=== PATIENT | female | born 1970 | race Caucasian/White ===

== ENCOUNTER 2016-12-11 11:47 | Inpatient (IN) | payer OTHER ==
--- NOTE | 2016-12-11 06:47 | PDHPUP ---
History & Physical Update H&P update statement: This history and physical update is based on an assessment of the patient which was completed after admission or registration (within 24 hours), but prior to the surgery/procedure. H&P update: H&P reviewed & patient examined, no change in patient's condition since H&P completed
[~2016-12-11 11:47] MED LIST: ceFAZolin 2 GM/DEXTROSE 100 ML IV ONE; morphINE SR 15 MG TAB PO ONE
[2016-12-11] MEDS ORDERED: LIDOCAINE 1% 2 ML INJ ONE (11:59)
[2016-12-11] MEDS ORDERED: LR 1,000 ML IV ONE (12:06)
[2016-12-11] MEDS ORDERED: GENTAMICIN SULFATE 80 MG/2 ML VIAL ONE (12:12)
[2016-12-11] MEDS ORDERED: THROMBIN (BOVINE) 5,000 UNIT VIAL TP ONE (12:12)
[2016-12-11] MEDS ORDERED: BACITRACIN 50,000 UNITS/10 ML SYR IRR ONE ×2 (12:12→13:46)
[2016-12-11] MEDS ORDERED: BUPIVACAINE/EPI 0.25% 30 ML SDV ONE ×2 (12:12→14:57)
[2016-12-11] MEDS ORDERED: GADOBUTROL 10 ML VIAL IVP ONE (12:39)
[2016-12-11] MEDS ORDERED: ceFAZolin 2 GM/DEXTROSE 100 ML IV ONE (13:00)
[2016-12-11] MEDS ORDERED: morphINE SR 15 MG TAB PO ONE (13:00)
--- NOTE | 2016-12-11 13:22 | PDANEPAE ---
ANE History of Present Illness 46 yo F with trigeminal neuralgia, here for crani, microvascular decompression ANE Past Medical History - Cardiovascular History Hx Hypertension: No Hx Arrhythmias: No Hx Chest Pain: No Hx Coronary Artery / Peripheral Vascular Disease: No Hx CHF / Valvular Disease: No Hx Palpitations: No Cardiovascular History Comment: THICKENING OF MITRAL VALVE- PCP MANAGES-dx 20+ yrs ago - Pulmonary History Hx COPD: No Hx Asthma/Reactive Airway Disease: No Hx Recent Upper Respiratory Infection: No Hx Oxygen in Use at Home: No Hx Sleep Apnea: No Sleep Apnea Screening Result - Last Documented: Negative - Neurologic History Hx Cerebrovascular Accident: No Hx Seizures: No Hx Dementia: No Neurologic History Comment: MIGRAINES - Endocrine History Hx Diabetes: No Hypothyroid: Yes Endocrine History Comment: HYPOTHYROIDISM -no Rx - Renal History Hx Renal Disorders: No - Liver History Hx Hepatic Disorders: No - Neurological & Psychiatric Hx Hx Neurological and Psychiatric Disorders: Yes Neurological / Psychiatric History Comment: DEPRESSION. ANXIETY. C5/C6 bulging disc,osteophyte - Cancer History Hx Cancer: No - Congenital Disorder History Hx Congenital Disorders: No - GI History GERD: mild Hx Gastrointestinal Disorders: Yes Gastrointestinal History Comment: REFLUX ON PRILOSEC. IBS. HX OF GASTRIC ULCER , ischemic colitis. - Other Health History Other Health History: Trigeminal neuralgia - Chronic Pain History Chronic Pain: Yes (R face/toward R ear) - Surgical History Prior Surgeries: R ft bunionectomy 2014. LT FOOT BUNION 05/2014. LAP MARNIE. LAPROSCOPY. 3 C-SECTIONS. HYSTERECTOMY. LEFT BREAST LUMPECTOMY ANE Review of Systems - Exercise capacity Exercise capacity: >=4 METS METS (RN): 4 METS ANE Patient History - Allergies Allergies/Adverse Reactions: Sulfa (Sulfonamide Antibiotics) Allergy (Verified 12/06/16 17:18) Hives - Home Medications Home medications: home medication list seen and reviewed Home Medications: Baclofen [Baclofen 10 mg (*)] 30 mg PO HS 11/22/16 [Last Taken 12/10/16] Butalb/Acetaminophen/Caffeine [Kngafc-Xdqzjmzi-Rgrm 50-300-40] 2 cap PO Q6H PRN 11/22/16 [Last Taken Unknown] DULoxetine [Cymbalta 60 MG (*)] 120 mg PO DAILY 11/22/16 [Last Taken 12/11/16] Doxepin HCl [Silenor] 6 mg PO HS 11/22/16 [Last Taken 12/10/16] Eszopiclone [Lunesta] 3 mg PO HS 11/22/16 [Last Taken 12/10/16] Gabapentin [Gabapentin] 600 mg PO TID 11/22/16 [Last Taken 12/11/16] Prochlorperazine Maleate [Compazine 10mg (*)] 10 mg PO Q6H PRN 11/22/16 [Last Taken 12/10/16] Spironolactone [Aldactone 50 MG (RX)] 50 mg PO BID 11/22/16 [Last Taken 12/10/16 ] buPROPion SR [Wellbutrin 150mg SR (*)] 150 mg PO BID 11/22/16 [Last Taken ] carBAMazepine [Tegretol] 200 mg PO BID 11/22/16 [Last Taken 12/10/16] Omeprazole [Prilosec 20 mg] 20 mg PO DAILY 12/06/16 [Last Taken 12/10/16] - NPO status NPO Status: no food or drink >8 hours NPO Since - Liquids (Date): 12/10/16 NPO Since - Liquids (Time): 21:00 NPO Since - Solids (Date): 12/10/16 NPO Since - Solids (Time): 21:00 - Anes Hx Anes Hx: post operative nausea - Smoking Hx Smoking Status: Never smoked - Family Anes Hx Family Anes Hx: none Family Hx Anesthesia Complications: NONE ANE Labs/Vital Signs - Vital Signs Blood Pressure: 114/75 Heart Rate: 99 Respiratory Rate: 14 O2 Sat (%): 98 Height: 157.48 cm Weight: 54.431 kg ANE Physical Exam - Airway Neck exam: FROM Mallampati Score: Class 2 Mouth exam: normal dental/mouth exam - Pulmonary Pulmonary: no respiratory distress, clear to auscultation - Cardiovascular Cardiovascular: regular rate and rhythym, no murmur, rub, or gallop - ASA Status ASA Status: II ANE Anesthesia Plan Anesthesia Plan: general endotracheal anesthesia Lines/Monitors: arterial line
[2016-12-11] MEDS ORDERED: MIDAZOLAM 2 MG/2 ML VIAL IVP ONE (13:23)
[2016-12-11] MEDS ORDERED: fentaNYL 100 MCG/2 ML INJ ONE ×4 (13:27→18:31)
[2016-12-11] MEDS ORDERED: REMIFENTANIL HCL 1 MG VIAL ONE ×2 (13:27→16:25)
[2016-12-11] MEDS ORDERED: PROPOFOL 200 MG/20 ML VIAL ONE (13:27)
[2016-12-11] MEDS ORDERED: PROPOFOL/EMULSION 500 MG/50 ML BOTTLE IV ONE ×2 (13:28→16:25)
[2016-12-11] MEDS ORDERED: CAFFEINE PO PRN (13:29)
[2016-12-11] MEDS ORDERED: PROCHLORPERAZINE MALEATE 10 MG TAB PO PRN (13:29)
[2016-12-11] MEDS ORDERED: ACETAMINOPHEN PO PRN (13:29)
[2016-12-11] MEDS ORDERED: [UNRECOGNIZED DRUG - OTHER] PO PRN (13:29)
[2016-12-11] MEDS ORDERED: BUTALBITAL PO PRN (13:29)
[2016-12-11] MEDS ORDERED: niCARdipine/NACL 200 ML IV PRN (13:30)
[2016-12-11] MEDS ORDERED: LACTULOSE 20 GM/30 ML UDCUP PO PRN (13:30)
[2016-12-11] MEDS ORDERED: POLYETHYLENE GLYCOL 3350 17 GM PKT PO PRN (13:30)
[2016-12-11] MEDS ORDERED: ONDANSETRON DISINTEGRATING 4 MG TAB PO PRN (13:30)
[2016-12-11] MEDS ORDERED: MAG HYDROX/AL HYDROX/SIMETH 30 ML UDCUP PO PRN (13:30)
[2016-12-11] MEDS ORDERED: BISACODYL 10 MG SUPP PR PRN (13:30)
[2016-12-11] MEDS ORDERED: MAGNESIUM HYDROXIDE 30 ML UDCUP PO PRN (13:30)
[2016-12-11] MEDS ORDERED: ACETAMINOPHEN 325 MG TAB PO PRN ×2 (13:30)
[2016-12-11] MEDS ORDERED: DEXAMETHASONE 4 MG/ML VIAL ONE ×3 (15:21→16:59)
[2016-12-11] MEDS ORDERED: ONDANSETRON 4 MG/2 ML VIAL ONE (15:21)
[2016-12-11] MEDS ORDERED: HYDROmorphONE/DILAUDID 1 MG/ML SYR IVP PRN (17:04)
[2016-12-11] MEDS ORDERED: PROMETHAZINE HCL 25 MG/ML INJ IVP PRN (17:04)
[2016-12-11] MEDS ORDERED: fentaNYL 100 MCG/2 ML INJ IVP PRN (17:04)
[2016-12-11] MEDS ORDERED: NALOXONE HCL 0.4 MG/ML INJ IVP PRN ×2 (17:04→18:00)
[2016-12-11] MEDS ORDERED: ONDANSETRON 4 MG/2 ML VIAL IVP PRN (17:04)
[2016-12-11] MEDS ORDERED: HYDROmorphONE/DILAUDID 2 MG/ML INJ ONE (17:30)
--- NOTE | 2016-12-11 17:48 | SOAPPROG ---
SOAP Progress Note Assessment/Plan: Post Op Visit: S: Awake and alert. NAD. Pt with mild incisional XIE O: AFVSS/PERRLA/EOMI no droop CN 2-12 grossly intact +lt touch 5/5 BUE/BLE = CDI/dressing in place A/P: 46 yo female that is s/p right sided MVD -orders in -call with any questions or concerns -pt seen by Dr Mata as well -HOB greater than 30degrees -no straining -pt will likely have higher pain med and nausea med needs 12/11/16 17:59 Objective: Vital Signs Temp Pulse Resp BP Pulse Ox 36.8 C 99 14 114/75 98 12/11/16 12:21 12/11/16 13:23 12/11/16 13:23 12/11/16 13:23 12/11/16 13:23 ICD10 Worksheet Patient Problems: Problems Problem Status Onset Trigeminal neuralgia of right side of face Acute microvascular decompression Acute - ICD10 Problem Qualifiers (1) Trigeminal neuralgia of right side of face
[2016-12-11] MEDS: fentaNYL 100 MCG/2 ML INJ IVP PRN ×4 (17:52→18:32)
[2016-12-11] MEDS ORDERED: PROMETHAZINE HCL 25 MG/ML INJ ONE (17:59)
[2016-12-11] MEDS ORDERED: HYDROmorphONE/DILAUDID 1 MG/ML SYR ONE ×2 (17:59→18:25)
[2016-12-11] MEDS ORDERED: METOCLOPRAMIDE 10 MG/2 ML VIAL IVP PRN (18:00)
[2016-12-11] MEDS ORDERED: SCOPOLAMINE HYDROBROMIDE 1.5 MG PATCH TD ONE ×2 (18:00→21:15)
[2016-12-11] MEDS ORDERED: HYDROmorphONE/DILAUDID 6 MG/30 ML PCA IV PRN (18:00)
[2016-12-11] MEDS: HYDROmorphONE/DILAUDID 1 MG/ML SYR IVP PRN ×5 (18:02→18:51)
[2016-12-11] MEDS: NS W/ 20 KCl/L 1,000 ML IV SCH (19:35)
[2016-12-11] MEDS: GABAPENTIN 300 MG CAP PO SCH ×2 (20:44→21:20)
[2016-12-11] MEDS ORDERED: NON-FORMULARY NEW DRUG (Eszopiclone [Lunesta] 3 MG) PO SCH (21:00)
[2016-12-11] MEDS ORDERED: DOXEPIN HCL 6 MG PO SCH (21:00)
[2016-12-11] MEDS: FAMOTIDINE 20 MG/NACL 50 ML IV SCH (21:07)
[2016-12-11] MEDS: DEXAMETHASONE 4 MG/ML VIAL IVP SCH (21:08)
[2016-12-11] MEDS: carBAMazepine 200 MG TAB PO SCH (21:19)
[2016-12-11] MEDS: BACLOFEN 10 MG TAB PO SCH (21:19)
[2016-12-11] MEDS: buPROPion SR 150 MG TAB PO SCH (21:19)
[2016-12-11] MEDS: SENNOSIDES/DOCUSATE SODIUM TAB PO SCH (21:20)
[2016-12-11] MEDS: SPIRONOLACTONE 50 MG TAB PO SCH (21:20)
[2016-12-11] MEDS: HYDROCODONE/APAP 10/325 TAB PO PRN (21:55)
[2016-12-11] MEDS: ONDANSETRON 4 MG/2 ML VIAL IVP PRN (22:17)
[2016-12-11] MEDS: ZOLPIDEM TARTRATE 5 MG TAB PO SCH (22:18)
[2016-12-11] MEDS: Doxepin Hcl [Silenor] 6 MG PO SCH (22:56)
[2016-12-12] MEDS: DEXAMETHASONE 4 MG/ML VIAL IVP SCH ×3 (02:18→11:42)
--- NOTE | 2016-12-12 04:17 | GOP ---
[f rep st] OPERATIVE REPORT DATE OF OPERATION: 12/11/2016 SURGEON: Neeraj Mata MD CAPACITOR TESTER: Nasim Maciel PA-C. PREOPERATIVE DIAGNOSIS: Right trigeminal neuralgia. POSTOPERATIVE DIAGNOSIS: Right trigeminal neuralgia. PROCEDURE PERFORMED: Right posterior fossa retromastoid craniotomy and microvascular decompression of the 5th cranial nerve, cranial stereotaxy, microscope. FINDINGS: ESTIMATED BLOOD LOSS: 50 cc. INDICATIONS: The patient is a 46-year-old with terrible refractory trigeminal neuralgia that was or iginally responsive to conservative treatment. She desired to have surgery for this. On her preope rative planning, images of the brain did not demonstrate a clear evidence of the cisternal segment v essel loop and she and I discussed this. She was really at wits end and felt that was probabl y better than living with the pain that she was in and she wanted to try surgery. She knew there wa s risk of hearing loss, facial asymmetry, brainstem stroke, cerebellar hemorrhage, posterior fossa h emorrhage including the possibility of . She knew that surgery may not provide her any relief and she knew that this was risk of CSF leak. She wanted to proceed despite these risks. DESCRIPTION OF PROCEDURE: Patient was taken to the operating room, placed in supine position. Gene ral anesthesia was begun. A large right shoulder roll was placed. Her head was turned to the left. She is connected to a Knight head frame and registered to the [facility]. Good registratio n data was obtained. We clipped the hair behind her right ear and planned a curvilinear incision. Crossing the junction of the sigmoid and transverse sinus had been planned [facility] She was sterilely prepped and draped in usual fashion. We made a sigmoid shaped incision, an d the subcutaneous tissue was dissected with Bovie cautery down to the periosteum of the skull and w e the soft tissue and galea away from the skull and placed a cerebellar retractor. We map ped out the sigmoid and transverse sinus and performed a craniotomy ostomy over this region at the j unction of the two. It was about a half-dollar shaped craniotomy. There was a large bridging vein and in this area of vein within the bone that we discovered running anterior laterally into the lowe r segments of the sigmoid sinus and we actually skeletonized this without any significant bleeding b ut it caused us to have a larger gap in our craniotomy than we would normally have planned. We were able to skeletonize the vessel and eventually coagulate it and divide it and then removed the bone without violation of the underlying dura. We used Kerrison to enlarge the opening somewhat and ensu re that we had the sigmoid and transverse sinuses. We then opened the dura in a cruciate fashion. We then opened and retracted the cerebellum medially and went down and punctured the cisterna magna with a 6 Rhoton and CSF emanated from this area and this allowed the cerebellum to collapse. We the n went rostrally above the cerebellum where there were some adhesions to the tentorium. We coagulat ed these adhesions and divided them allowing the cerebellum to fall out down and away from the tento rium. We did not actually coagulate any of the bridging cerebellar veins to the tentorium. These w ere somewhat deeper and they were not threatened by our exposure. We then introduced operating micr oscope and under the scope, we went in and without a retractor simply allowed the cerebellum to fall away from the tentorium and the petrous bone. The petrosal vein was located and coagulated and tra nsected. Deep to this was the 5th cranial nerve. The 4th cranial nerve was also appreciated rostra lly. The superior cerebellar artery and ICA were also identified. The superior cerebellar artery d id not appear to interfere with the nerve root entry zone of the 5th nerve. There were 2 structures at the nerve root entry zone of the 5th nerve. One was a vessel loop of ICA coming up over the 7th , 8th nerve complex, curving around and touching the fibers of the 5th nerve right where they entere d the brainstem itself. We mobilized this vessel with relative ease. There was also another relati vely large vein coming across the same region and we were able to mobilize this vein by dividing the arachnoid around it, but I did not want to sacrifice this vein as one would typically do. We did m obilize the vein and we then performed an internal neurolysis of the 5th nerve, simply dividing its fibers and really peering on the backside of it and looking for any evidence of additional vessels e arian on the backside of the 5th nerve and none was found. We therefore further mobilized ICA and the vessel loop coming up over the 7th and 8th nerve complex and then laid an Ivalon sponge underneath this vessel loop where it was sitting on the nerve root entry zone of the 5th nerve itself. We then irrigated it vigorously and attempted to dislodge the Ivalon sponge and it appeared to be very secu re. We then turned our attention to closing and we closed the dura with a running 5-0 Prolene sutur e and got a nice watertight closure. We plated the bone on the back table with [employer] craniofacial plating system and fixed it in place. We had waxed the bony edges going in and waxed them again go ing out as there were some mastoid air cells that were exposed. Generous bone wax had been applied to these. We had irrigated throughout the surgery with antibiotic saline solution. We closed the i ncision in multiple layers using Vicryl sutures and a running Prolene was placed in the skin itself. There were no complications. COMPLICATIONS: None. /[id number]/MODL
[2016-12-12] MEDS: ONDANSETRON 4 MG/2 ML VIAL IVP PRN (04:27)
[2016-12-12] MEDS: FAMOTIDINE 20 MG/NACL 50 ML IV SCH (08:38)
[2016-12-12] MEDS: HYDROCODONE/APAP 10/325 TAB PO PRN ×2 (08:52→14:53)
[2016-12-12] MEDS: GABAPENTIN 300 MG CAP PO SCH ×3 (08:55→20:42)
[2016-12-12] MEDS: DULoxetine 60 MG CAP PO SCH (08:55)
[2016-12-12] MEDS: buPROPion SR 150 MG TAB PO SCH ×2 (08:55→20:42)
[2016-12-12] MEDS: PANTOPRAZOLE SODIUM 40 MG TAB PO SCH (08:55)
[2016-12-12] MEDS: SENNOSIDES/DOCUSATE SODIUM TAB PO SCH ×2 (08:56→20:41)
[2016-12-12] MEDS: carBAMazepine 200 MG TAB PO SCH ×2 (08:57→20:41)
[2016-12-12] MEDS: SPIRONOLACTONE 50 MG TAB PO SCH ×2 (08:57→21:07)
--- NOTE | 2016-12-12 09:23 | NEUSURGPN ---
Assessment/Plan: Post Op Visit: S: Awake and alert. States she is having headaches, but no nausea. Reports of some word finding difficulties overnight but per RN also had a lot of pain meds and sleep deprivation that may have been contributing. Better this morning. Reports of some intermittent double vision. Has no facila pain as of now but has not performed triggers that normally set off this pain. 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 Mata Catheter Insertion Date: 12/11/16 - Physician Discussed Patient with : Adolfo Neurosurgery Physical Exam - Vitals, I&O, Labs I and O 12/11/16 12/12/16 12/13/16 05:59 05:59 05:59 Intake Total 3583 Output Total 2050 Balance 1533 Weight 54.431 kg Intake: Oral (ml) 630 IV Intake (ml) 2853 IV Infused (ml) 100 ceFAZolin 2 GM/DEXTROSE 100 100 ml @ 200 mls/hr IV ONCALL ONE Rx#:[id number] Output: Urine (ml) 2000 Catheter 2000 Estimated Blood Loss (ml) 50 Vital Signs Temp Pulse Resp BP Pulse Ox 36.6 C 90 12 97/61 L 99 12/12/16 04:00 12/12/16 06:00 12/12/16 06:00 12/12/16 06:00 12/12/16 06:00 ICD10 Worksheet Patient Problems: Problems Problem Status Onset Trigeminal neuralgia of right side of face Acute microvascular decompression Acute
[2016-12-12] MEDS: ACET/CAFFEINE/BUTA FIORICET 1 EACH TAB PO PRN ×2 (10:26→15:21)
[2016-12-12] MEDS: DIAZEPAM 5 MG TAB PO PRN ×2 (12:54→18:03)
[2016-12-12] MEDS: OXYCODONE/APAP 5/325 TAB PO PRN (16:05)
[2016-12-12] MEDS ORDERED: PATCH REMOVAL 1 EA PATCH TD ONE (18:01)
[2016-12-12] MEDS: BACLOFEN 10 MG TAB PO SCH (20:40)
[2016-12-12] MEDS: ZOLPIDEM TARTRATE 5 MG TAB PO SCH (20:42)
[2016-12-12] MEDS: Doxepin Hcl [Silenor] 6 MG PO SCH (20:46)
--- NOTE | 2016-12-13 09:21 | NEUSURGPN ---
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 Mata Subjective: Speech improved. a little dizzy with standing, some double vision. Denies any discharge from her incision. Objective: NAD A&Ox3 MAEx4 5/5 and equal in BUE and BLE. CN II-XII grossly intact. Incision c/d/i. Catheter Insertion Date: 12/11/16 - Physician Discussed Patient with : Adolfo Neurosurgery Physical Exam - Vitals, I&O, Labs I and O 12/12/16 12/13/16 12/14/16 05:59 05:59 05:59 Intake Total 3583 1500 Output Total 2050 750 Balance 1533 750 Weight 54.431 kg Intake: Oral (ml) 630 1200 IV Intake (ml) 2853 IV Infused (ml) 100 300 NS W/ 20 KCl/L 1,000 ml @ 300 100 mls/hr IV CONT SCOTT Rx#:[id number] ceFAZolin 2 GM/DEXTROSE 100 100 ml @ 200 mls/hr IV ONCALL ONE Rx#:[id number] Output: Urine (ml) 2000 750 Catheter 2000 750 Estimated Blood Loss (ml) 50 Other: Number of Voids Catheter 3 Toilet 3 Vital Signs Temp Pulse Resp BP Pulse Ox 36.8 C 104 H 15 101/69 94 12/13/16 08:00 12/13/16 08:00 12/13/16 08:00 12/13/16 08:00 12/13/16 08:00 ICD10 Worksheet Patient Problems: Problems Problem Status Onset Trigeminal neuralgia of right side of face Acute microvascular decompression Acute
[2016-12-13] MEDS: OXYCODONE/APAP 5/325 TAB PO PRN ×2 (09:22→15:26)
[2016-12-13] MEDS: DULoxetine 60 MG CAP PO SCH (09:24)
[2016-12-13] MEDS: buPROPion SR 150 MG TAB PO SCH ×2 (09:24→20:31)
[2016-12-13] MEDS: carBAMazepine 200 MG TAB PO SCH ×2 (09:24→20:32)
[2016-12-13] MEDS: SENNOSIDES/DOCUSATE SODIUM TAB PO SCH ×2 (09:24→20:32)
[2016-12-13] MEDS: DIAZEPAM 5 MG TAB PO PRN (09:24)
[2016-12-13] MEDS: GABAPENTIN 300 MG CAP PO SCH ×3 (09:24→20:32)
[2016-12-13] MEDS: PANTOPRAZOLE SODIUM 40 MG TAB PO SCH (09:25)
[2016-12-13] MEDS: SPIRONOLACTONE 50 MG TAB PO SCH ×3 (10:43→20:32)
[2016-12-13] MEDS: CEPACOL LOZENGE PO PRN ×2 (12:47→15:21)
[2016-12-13] MEDS: NS W/ 20 KCl/L 1,000 ML IV SCH (17:34)
[2016-12-13] MEDS ORDERED: NS BOLUS 500 ML (Wide open) IV ONE (18:30)
[2016-12-13] MEDS: KETOROLAC 15 MG/1 ML SDV IVP PRN (18:32)
[2016-12-13] MEDS: Doxepin Hcl [Silenor] 6 MG PO SCH (20:32)
[2016-12-13] MEDS: ZOLPIDEM TARTRATE 5 MG TAB PO SCH (20:32)
[2016-12-13] MEDS: BACLOFEN 10 MG TAB PO SCH (20:32)
[2016-12-14] MEDS: OXYCODONE/APAP 5/325 TAB PO PRN ×2 (05:29→12:43)
[2016-12-14] MEDS: NS W/ 20 KCl/L 1,000 ML IV SCH (05:30)
[2016-12-14 08:25] VITALS: BP 96/71; PULSE 94; RESP 12; TEMP 97.6; O2SAT 96
[2016-12-14] MEDS: SENNOSIDES/DOCUSATE SODIUM TAB PO SCH (09:30)
[2016-12-14] MEDS: buPROPion SR 150 MG TAB PO SCH (09:31)
[2016-12-14] MEDS: GABAPENTIN 300 MG CAP PO SCH (09:31)
[2016-12-14] MEDS: carBAMazepine 200 MG TAB PO SCH (09:31)
[2016-12-14] MEDS: PANTOPRAZOLE SODIUM 40 MG TAB PO SCH (09:31)
[2016-12-14] MEDS: DULoxetine 60 MG CAP PO SCH (09:31)
[2016-12-14] MEDS: SPIRONOLACTONE 50 MG TAB PO SCH (09:32)
[2016-12-14] MEDS: KETOROLAC 15 MG/1 ML SDV IVP PRN (10:28)
--- NOTE | 2016-12-14 11:20 | NEUSURGPN ---
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 Mata Subjective: Patient doing better with sore throat and swallowing this morning. Eager to go home later today. Objective: NAD, VSS, speech fluent A&Ox3 MAEx4 5/5 and equal in BUE and BLE. CN II-XII grossly intact. Incision c/d/i. Catheter Insertion Date: 12/11/16 - Physician Discussed Patient with : Adolfo Neurosurgery Physical Exam - Vitals, I&O, Labs I and O 12/13/16 12/14/16 12/15/16 05:59 05:59 05:59 Intake Total 1500 2100 Output Total 750 Balance 750 2100 Intake: Oral (ml) 1200 500 IV Infused (ml) 300 1600 NS W/ 20 KCl/L 1,000 ml @ 300 1100 100 mls/hr IV CONT SCOTT Rx#:[id number] Ns 500 ml @ Wide Open IV 500 ONCE ONE Rx#:[id number] Output: Urine (ml) 750 Catheter 750 Other: Intake Quantity Yes Sufficient Number of Voids Catheter 3 Toilet 3 1 Vital Signs Temp Pulse Resp BP Pulse Ox 36.4 C 94 12 96/71 L 96 12/14/16 08:00 12/14/16 08:00 12/14/16 08:00 12/14/16 08:00 12/14/16 08:00 ICD10 Worksheet Patient Problems: Problems Problem Status Onset Trigeminal neuralgia of right side of face Acute microvascular decompression Acute
== END 2016-12-14 13:15 | disposition home or self-care (01) | DRG 27 ==
LOC: F3N 11:47 → F2N 19:01 → F3N 12-12 20:10
PROVIDERS: ADMIT Neurological Surgery; ATTEND Neurological Surgery
PROC: 8E09XBZ Computer Assisted Procedure of Head and Neck Region (ICD-10-PCS; principal; 2016-12-11 14:00)
PROC: 00NK0ZZ Release Trigeminal Nerve, Open Approach (ICD-10-PCS; principal; 2016-12-11 14:00)
DX: G50.0 Trigeminal neuralgia (principal)
CPT/HCPCS: 92526-GN; 92610-GN; 97116-GP; 97161-GP; 97165-GO; 97530-GP; 97535-GO; A9585; C1713; J0690; J1100; J1170; J1200; J1885; J2250; J2405; J2550; J2704; J3010

== ENCOUNTER → 2017-08-27 | Outpatient (CLI) | payer OTHER | LOC: FIMAGING 11:18 | PROVIDERS: ATTEND Internal Medicine Geriatric Medicine | DX: Z12.31 Encounter for screening mammogram for malignant neoplasm of breast (principal); D72.829 Elevated white blood cell count, unspecified; E03.9 Hypothyroidism, unspecified; F50.00 Anorexia nervosa, unspecified; G50.0 Trigeminal neuralgia ==

== ENCOUNTER 2017-11-30 07:59 | Observation (INO) | payer OTHER ==
[2017-11-30] MEDS ORDERED: NS 1,000 ML IV ONE ×2 (08:21→08:39)
[2017-11-30] MEDS ORDERED: HYDROmorphONE/DILAUDID 2 MG/ML INJ IVP ONE ×2 (08:39→10:21)
[2017-11-30] MEDS ORDERED: ONDANSETRON 4 MG/2 ML VIAL IVP ONE (08:39)
--- NOTE | 2017-11-30 08:43 | EDPHY ---
H & P Time Seen by Provider: 11/30/17 08:15 HPI/ROS: CHIEF COMPLAINT: Abdominal pain, diarrhea HISTORY OF PRESENT ILLNESS: The patient is a 47-year-old female with a history of ischemic colitis in IBS who presents emergency department with abdominal cramping and diarrhea. The patient's symptoms started at approximately 1:00 a.m.. She developed lower abdominal cramping. She had multiple episodes of diarrhea. At 6:30 a.m. This morning she had frankly bloody diarrhea. Her cramping has worsened. She denies any nausea or vomiting. No fevers or chills. No dysuria or frequency. Patient has previously had a cholecystectomy and hysterectomy. Patient states this feels unlike her IBS or endometriosis. REVIEW OF SYSTEMS: My complete review of systems is negative except as mentioned in the HPI. Past Medical/Surgical History: Includes migraine, hypothyroidism, endometriosis, GERD, depression, trigeminal neuralgia Past surgical history: Includes cholecystectomy, hysterectomy, trigeminal neuralgia craniotomy Smoking Status: Never smoked Physical Exam: 36.4, 100/68, 102, 16, 100% on room air GENERAL: Mild acute distress, alert. HEENT: Eyes normal to inspection, normal pharynx, no signs of dehydration. NECK: No thyromegaly, no lymphadenopathy, supple. RESPIRATORY: Clear to auscultation bilaterally, no rales, rhonchi or wheezing. CVS: Regular rate and rhythm, no rubs, murmurs, or gallops. ABDOMEN: Soft, mild lower abdominal tenderness to palpation with no rebound or guarding, nondistended, no organomegaly. BACK: Normal to inspection, no CVA tenderness. SKIN: Normal color, no rash, warm, dry. No pallor. EXTREMITIES: No pedal edema, no calf tenderness, no Homans sign or cords, no joint swelling. NEURO/PSYCH: Alert and oriented, normal mood and affect, normal motor sensory exam. Constitutional: Initial Vital Signs Temperature (C) 36.4 C 11/30/17 08:01 Heart Rate 102 H 11/30/17 08:01 Respiratory Rate 16 11/30/17 08:01 Blood Pressure 100/68 11/30/17 08:01 O2 Sat (%) 100 11/30/17 08:01 O2 Delivery Mode Nasal Cannula Allergies/Adverse Reactions: Sulfa (Sulfonamide Antibiotics) Allergy (Verified 12/06/16 17:18) Hives Home Medications: Medication Instructions Recorded Baclofen [Baclofen 10 mg (*)] 30 mg PO HS 11/22/16 Butalb/Acetaminophen/Caffeine 2 cap PO Q6H PRN 11/22/16 [Sbdrsv-Rypmrgak-Jjof 50-300-40] DULoxetine [Cymbalta 60 MG (*)] 120 mg PO DAILY 11/22/16 Doxepin HCl [Silenor] 6 mg PO HS 11/22/16 Eszopiclone [Lunesta] 3 mg PO HS 11/22/16 Gabapentin 600 mg PO TID 11/22/16 Prochlorperazine Maleate 10 mg PO Q6H PRN 11/22/16 [Compazine 10mg (*)] Spironolactone [Aldactone] 50 mg PO BID 11/22/16 buPROPion SR [Wellbutrin 150mg SR 150 mg PO BID 11/22/16 (*)] carBAMazepine [Tegretol] 200 mg PO BID 11/22/16 Omeprazole [Prilosec 20 mg] 20 mg PO DAILY 12/06/16 Ibuprofen [Ibuprofen Ib] 600 - 800 mg PO Q6 #0 tablet 12/14/16 Ondansetron Odt [Zofran Odt 4 mg 4 - 8 mg PO Q6HRS PRN #30 tab 12/14/16 (*)] Sennosides/Docusate Sodium 1 - 2 tab PO BID #0 tab 12/14/16 [Senokot-S] oxyCODONE/APAP 5/325 [Percocet 1 - 2 tab PO Q6H PRN #60 tab 12/14/16 5/325 (*)] Medical Decision Making - Diagnostics Imaging Results: Imaging Impressions Abdomen CT 11/30/17 08:39 Impression: 1. Probable mild descending colitis, although the colon is decompressed and suboptimally assessed. 2. Additional findings, as above. Findings discussed with Nataliya Thrasher MD on November 30, 2017 at 1003 hours. ED Course/Re-evaluation: In the emergency department I discussed possible etiologies with the patient. I answered all her questions. IV was placed. Laboratory studies and CT imaging were obtained. Patient was given Dilaudid 0.5 mg IV for pain, Zofran 4 mg IV for nausea, and normal saline 1 L IV for hydration. [place] [id number]. Patient's chemistry panel LFTs and lipase were normal. CT of the abdomen pelvis: Please refer the dictated report. Patient has a descending colitis. No abscess. I discussed the results with the patient. On repeat exam she still had mild lower abdominal tenderness palpation with no rebound or guarding. She will be admitted for further pain management and evaluation. I discussed the case with the hospitalist service who will admit. They recommended Levaquin and Flagyl. This was given. Differential Diagnosis: My differential includes but is not limited to mesenteric ischemia, ischemic colitis, diverticulitis, perforation, obstruction, appendicitis, abscess, volvulus, intussusception - Data Points Laboratory Results: Laboratory Results 11/30/17 08:20 11/30/17 08:20 11/30/17 11/30/17 11/30/17 10:30 08:20 08:20 WBC 13.27 10^3/uL H 10^3/uL (3.80-9.50) RBC 5.20 10^6/uL 10^6/uL (4.18-5.33) Hgb 15.3 g/dL g/dL (12.6-16.3) Hct 47.1 % H % (38.0-47.0) MCV 90.6 fL fL (81.5-99.8) MCH 29.4 pg pg (27.9-34.1) MCHC 32.5 g/dL g/dL (32.4-36.7) RDW 12.2 % % (11.5-15.2) Plt Count 366 10^3/uL 10^3/uL (150-400) MPV 10.7 fL fL (8.7-11.7) Neut % (Auto) 70.1 % % (39.3-74.2) Lymph % (Auto) 19.7 % % (15.0-45.0) [place] % (Auto) 7.0 % % (4.5-13.0) Eos % (Auto) 2.4 % % (0.6-7.6) Baso % (Auto) 0.5 % % (0.3-1.7) Nucleat RBC Rel Count 0.0 % % (0.0-0.2) Absolute Neuts (auto) 9.31 10^3/uL H 10^3/uL (1.70-6.50) Absolute Lymphs (auto) 2.61 10^3/uL 10^3/uL (1.00-3.00) Absolute Monos (auto) 0.93 10^3/uL H 10^3/uL (0.30-0.80) Absolute Eos (auto) 0.32 10^3/uL 10^3/uL (0.03-0.40) Absolute Basos (auto) 0.06 10^3/uL 10^3/uL (0.02-0.10) Absolute Nucleated RBC 0.00 10^3/uL 10^3/uL (0-0.01) Immature Gran % 0.3 % % (0.0-1.1) Immature Gran # 0.04 10^3/uL 10^3/uL (0.00-0.10) Sodium 143 mEq/L mEq/L (135-145) Potassium 4.7 mEq/L mEq/L (3.3-5.0) Chloride 102 mEq/L mEq/L (97-110) Carbon Dioxide 28 mEq/l mEq/l (22-31) Anion Gap 13 mEq/L mEq/L (8-16) BUN 19 mg/dL mg/dL (7-23) Creatinine 0.8 mg/dL mg/dL (0.6-1.0) Estimated GFR > 60 Glucose 92 mg/dL mg/dL (70-100) Calcium 9.9 mg/dL mg/dL (8.5-10.4) Total Bilirubin 0.5 mg/dL mg/dL (0.1-1.4) Conjugated Bilirubin 0.4 mg/dL mg/dL (0.0-0.5) Unconjugated Bilirubin 0.1 mg/dL mg/dL (0.0-1.1) AST 34 IU/L IU/L (14-46) ALT 29 IU/L IU/L (9-52) Alkaline Phosphatase 71 IU/L IU/L (38-126) Total Protein 8.4 g/dL H g/dL (6.3-8.2) Albumin 4.7 g/dL g/dL (3.5-5.0) Lipase 125 IU/L IU/L (23-300) Urine Color YELLOW Urine Appearance CLEAR Urine pH 5.0 (5.0-7.5) Ur Specific [place] > 1.060 H (1.002-1.030) Urine Protein NEGATIVE (NEGATIVE) Urine Ketones NEGATIVE (NEGATIVE) Urine Blood NEGATIVE (NEGATIVE) Urine Nitrate NEGATIVE (NEGATIVE) Urine Bilirubin NEGATIVE (NEGATIVE) Urine Urobilinogen NEGATIVE EU EU (0.2-1.0) Ur Leukocyte Esterase NEGATIVE (NEGATIVE) Urine RBC Pending Urine WBC Pending Ur Epithelial Cells Pending Urine Glucose NEGATIVE (NEGATIVE) Medications Given: Discontinued Medications Hydromorphone HCl (Dilaudid) 0.5 mg IVP EDNOW ONE Stop: 11/30/17 08:40 Last Admin: 11/30/17 08:46 Dose: 0.5 mg Hydromorphone HCl (Dilaudid) 0.5 mg IVP EDNOW ONE Stop: 11/30/17 10:22 Last Admin: 11/30/17 10:27 Dose: 0.5 mg Sodium Chloride (Ns) 1,000 mls @ 0 mls/hr IV ONCE ONE PRN Reason: Wide Open Stop: 11/30/17 08:22 Last Admin: 11/30/17 08:21 Dose: 1,000 mls Sodium Chloride (Ns) 1,000 mls @ 0 mls/hr IV EDNOW ONE; Wide Open PRN Reason: Protocol Stop: 11/30/17 08:40 Last Admin: 11/30/17 10:42 Dose: Not Given Ondansetron HCl (Zofran) 4 mg IVP EDNOW ONE Stop: 11/30/17 08:40 Last Admin: 11/30/17 08:46 Dose: 4 mg Departure - Departure Disposition: [facility] Inpatient Acute Clinical Impression: Colitis Abdominal pain Qualifiers: Abdominal location: lower abdomen, unspecified Qualified Code(s): R10.30 - Lower abdominal pain, unspecified Condition: Good Instructions: Acute Abdominal Pain (ED) Referrals: Nury Hansen MD [Primary Care Provider] - As per Instructions
[2017-11-30 08:47] LABS: PLATELET COUNT 366 10^3/uL (150-400)
[2017-11-30] MEDS ORDERED: IOPAMIDOL (ISOVUE-300) 100 ML BTL ONE (09:16)
[2017-11-30] MEDS ORDERED: metroNIDAZOLE 500 MG TAB PO ONE (10:48)
[2017-11-30] MEDS ORDERED: ONDANSETRON DISINTEGRATING 4 MG TAB PO PRN (12:48)
[2017-11-30] MEDS: HYDROmorphONE/DILAUDID 1 MG/ML INJ IVP PRN ×3 (13:36→21:53)
[2017-11-30] MEDS: ONDANSETRON 4 MG/2 ML VIAL IVP PRN ×3 (13:36→21:53)
[2017-11-30] MEDS ORDERED: PROCHLORPERAZINE MALEATE 10 MG TAB PO PRN (13:42)
[2017-11-30] MEDS ORDERED: DIAZEPAM 5 MG TAB PO PRN (13:42)
[2017-11-30] MEDS ORDERED: PEG 3350/NA SULF,BICARB,CL/KCL (GAVILYTE-G) 4000 ML BTL PO ONE (13:55)
[2017-11-30] MEDS ORDERED: ACET/CAFFEINE/BUTA FIORICET 1 EACH TAB PO PRN (14:00)
[2017-11-30] MEDS: NS 1,000 ML IV SCH (14:00)
--- NOTE | 2017-11-30 14:50 | GHP ---
[f rep st] HISTORY AND PHYSICAL DATE OF ADMISSION: 11/30/2017 CHIEF COMPLAINT: Abdominal pain and bright red blood per rectum. HPI: The patient is a 47-year-old with a history significant for irritable bowel syndrome, history o f anorexia, depression, and anxiety. She comes in with worsening abdominal pain and bright red blood per rectum. She states that her abdominal pain has been an issue for the past several weeks. Initi ally it was quite mild. She describes some bloating and discomfort, but nothing significant. She sa w her primary care provider who felt that this may be her IBS or acid reflux and elected to increase her PPI for a few weeks to see if it helped. Despite doing that, her symptoms did not improve. Over the last few days, she started feeling more fatigued. She had a headache last night and then this m orning at 1 a.m., she woke up with severe abdominal pain in her lower quadrants. She got up and had 4 bouts of diarrhea and then started having some pure blood. Her symptoms eased briefly. She went b ack to bed, woke up again with severe abdominal cramping and more bloody bowel movements, so came int o the ER for further evaluation and treatment. She has not had fevers or chills. She had has had so me nausea, but no vomiting. She did have a migraine last night. She has had more fatigue than usual , but no weight changes. No chest pain, shortness of breath, palpitations. No urinary symptoms. No other musculoskeletal complaints. No swelling or neuropathy. No new rash. She does have a history of acne around her face and uses spironolactone for that. REVIEW OF SYSTEMS: A 10-point review of systems was done with pertinent positives present in the HPI . PAST MEDICAL HISTORY: 1. Recurrent major depressive disorder and some anxiety. 2. History of anorexia nervosa in remission. 3. Classic migraines. 4. Gastroesophageal reflux disease. 5. Irritable bowel syndrome. 6. Lichen sclerosis. 7. Cervical spine arthritis. 8. Insomnia. 9. Remote history of ischemic colitis over 10 years ago, which presented with similar symptoms, had a negative workup, and has had no recurrence of any bloody bowel movements till now. SURGICAL HISTORY: Includes , cholecystectomy, hysterectomy, and laparoscopy. She did have a colonoscopy and upper endoscopy in [place] over 10 years ago which were fairly unremarkable. SOCIAL HISTORY: She has 4 children. She does not smoke. She does not drink alcohol. FAMILY HISTORY: Significant for lupus in an aunt. 2 daughters have JRA, a mother with possible Croh n disease and abdominal issues. PHYSICAL EXAMINATION: VITAL SIGNS: She is afebrile. Heart rate 85, blood pressure 94/63, respirati ons 16. She is 98% on 1 L. GENERAL: She is a very pleasant 47-year-old. She is in minimal distres s. She is alert and oriented. HEENT: Atraumatic. Pupils equal. Extraocular movements intact. Mu cous membranes moist. Oropharynx clear. NECK: Supple. No adenopathy. HEART: Regular rate and rh ythm. No murmur, gallop, or rub. LUNGS: Clear to auscultation. No wheeze, rhonchi, or rales. ABD OMEN: Soft, mild tenderness diffusely in the lower quadrants, but no rebound or guarding. Positive bowel sounds. EXTREMITIES: No clubbing, cyanosis, or edema. MUSCULOSKELETAL: No joint effusions o r deformities. NEUROLOGIC: Her speech is fluent. She is alert and oriented. She is moving all 4 e xtremities. SKIN: Intact. No rash. Some mild acne around her face. PSYCHIATRIC: Mood is normal. She is appropriate. LABORATORY DATA: CBC shows a white count of 13.3, hemoglobin 15.3, platelet count of 366. Electroly augustina and renal function are normal. LFTs are all normal. Urinalysis is negative. Abdominal CT scan shows probable mild descending colitis. ASSESSMENT AND PLAN: A 47-year-old presents with bright red blood per rectum as well as abdominal pa in. Symptoms most consistent with ischemic colitis, although cannot rule out other etiologies such a s an inflammatory bowel disease. Patient discussed in detail with Dr. Johnson who will see her in cons ultation. 1. Abdominal pain/bright red blood per rectum, unclear etiology although evidence of mild colitis on CT scan, although this was a suboptimal study. Will put her on bowel rest today, intravenous fluids , clear liquids, and treat her symptoms with antiemetics and pain medications as needed. Will start her on a GoLYTELY preparation tonight if she can tolerate it for a possible colonoscopy in the a.m. Dr. Johnson will consult with her in the morning. Additionally to the above evaluation, will check imm une studies including HAYLEY and ANCA per Dr. Johnson's request. I will not give her antibiotics. 2. History of anxiety and depression. Continue her usual medications as prescribed. 3. Migraine headaches. Currently migraine free. Will provide her home medications if needed. 4. Acne fairly severe around her face on spironolactone. Will hold for now given the fact that she is not able to eat much and may be at risk for dehydration. /[id number]/MODL
[2017-11-30] MEDS: buPROPion SR 150 MG TAB PO SCH (15:14)
[2017-11-30] MEDS: DULoxetine 60 MG CAP PO SCH (15:14)
[2017-11-30] MEDS ORDERED: POLYETHYLENE GLYCOL 3350 17 GM PKT ONE (17:16)
[2017-11-30] MEDS ORDERED: BACLOFEN 10 MG TAB PO SCH (21:00)
[2017-11-30] MEDS ORDERED: DOXEPIN HCL 10 MG CAP PO SCH (21:00)
[2017-11-30] MEDS ORDERED: NON-FORMULARY NEW DRUG (Eszopiclone [Lunesta] 3 MG) PO SCH (21:00)
[2017-11-30] MEDS: GABAPENTIN 300 MG CAP PO SCH (21:53)
[2017-12-01] MEDS: NS 1,000 ML IV SCH ×2 (02:38→09:50)
[2017-12-01] MEDS: HYDROmorphONE/DILAUDID 1 MG/ML INJ IVP PRN ×2 (02:38→08:32)
[2017-12-01] MEDS: ONDANSETRON 4 MG/2 ML VIAL IVP PRN ×2 (02:39→08:32)
[2017-12-01 03:35] LABS: HEPATITIS C ANTIBODY TOTAL NEGATIVE (NEGATIVE)
[2017-12-01 05:19] LABS: PLATELET COUNT 210 10^3/uL (150-400)
[2017-12-01] MEDS ORDERED: NS 500 ML IV ONE (05:54)
--- NOTE | 2017-12-01 08:42 | HOSPPROG ---
Hospitalist Progress Note Assessment/Plan: Patient is a 47-year-old female who presented the emergency room with abdominal pain and bright red blood per rectum. Today is my 1st encounter with the patient. Chart reviewed. Discussed her care with Dr. Johnson. Plan is for her to get a colonoscopy today * abdominal pain, has mild colitis noted on CT scan -to get a colonoscopy today -immune studies are pending including HAYLEY and ANCA * red blood per rectum * history of anxiety,depression * migraine headache * acne -on spironolactone *Plan: will await colonoscopy results to further evaluate if Alondra can be dc today or not. Subjective: Alondra has ongoing nausea during my interview. Objective: Vital Signs Temp Pulse Resp BP Pulse Ox 36.8 C 104 H 16 91/61 L 99 12/01/17 04:00 12/01/17 04:00 12/01/17 04:00 12/01/17 04:00 12/01/17 04:00 Laboratory Results 12/01/17 04:45 12/01/17 04:45 11/30/17 12/01/17 12/02/17 05:59 05:59 05:59 Intake Total 2049 Balance 2049 500 - Physical Exam Constitutional: appears nourished, not in pain, uncomfortable Eyes: PERRL Ears, Nose, Mouth, Throat: hearing normal Cardiovascular: regular rate and rhythym Respiratory: no respiratory distress Gastrointestinal: normoactive bowel sounds Skin: warm Musculoskeletal: full muscle strength Neurologic: AAOx3 Psychiatric: interacting appropriately ICD10 Worksheet Patient Problems: Problems Problem Status Onset Abdominal pain Acute Colitis Acute Trigeminal neuralgia of right side of face Acute microvascular decompression Acute
[2017-12-01] MEDS ORDERED: LR 1,000 ML IV ONE (10:02)
--- NOTE | 2017-12-01 10:16 | GCON ---
[f rep st] CONSULTATION DATE OF CONSULTATION: 12/01/2017 REFERRING PHYSICIAN: Marquita Arias MD REASON FOR CONSULTATION: Hematochezia, abdominal pain. Dear Dr. Arias: Thank you very kindly for asking me to evaluate the patient in consultation for a chief complaint of bloody diarrhea. This started yesterday at about 1:00. She has had a previous episode of this about 10 years ago with a negative diagnostic workup, including a colonoscopy, which she says did not reve al any evidence of disease. She was in her usual state of health yesterday when she started to devel op lower abdominal cramping. There was bloating and firmness to her abdomen. She felt distended and hard. This began after she ate a [employer] hamburger. She denies any vomiting or nausea, and there has been no fever. She denies any antibiotic use or recent travel. She started to have loose, wate ry bowel movements that initially were nonbloody, but then ultimately turned bloody. She had about 4 episodes of blood and then came to the emergency room for further evaluation. A CT scan of the abdo men and pelvis reveals left-sided colonic thickening of a mild nature, with no other intraabdominal a bnormalities, other than some mild extrahepatic biliary and intrahepatic biliary dilation with an abs ent gallbladder. Her LFTs have been normal. Her lipase is normal. Her white count was slightly sindhu vated at 13.2. Her hematocrit has fallen from 47 to 36. I am asked to assist with further evaluatio n and management. PAST MEDICAL HISTORY: Significant for a previous episode of ischemic colitis about 10 years ago franc pelaez living in [place]. She has had chronic heartburn, migraine headaches, anorexia nervosa, trigemin al neuralgia with a cranial surgery to treat lichen sclerosis, spinal arthritis, chronic insomnia, ma logan depression, a history of anxiety, and endometriosis. Craniotomy for trigeminal neuralgia treatme nt. Diarrhea-predominant IBS. PAST SURGICAL HISTORY: Includes a cholecystectomy for cholelithiasis, total abdominal hysterectomy f or endometrial disease, 2 laparoscopies with endometrial ablations. She has had an upper endoscopy f or chronic heartburn about 10 years ago that was normal, a colonoscopy in the same setting for an epi sode of bloody diarrhea that was supposedly nondiagnostic, although she does not have any other great details about this. SOCIAL HISTORY: The patient is . She has 4 children. She has recently moved from [place] to [facility]. No alcohol. No tobacco. No history of substance abuse. FAMILY HISTORY: Significant for a possible history of inflammatory bowel disease with Crohn disease in her mom. She has 2 daughters with juvenile rheumatoid arthritis. There is an aunt with lupus dis ease. Nobody else has had ischemic colitis that she is aware of. MEDICATIONS: On admission, include baclofen, Wellbutrin, Valium, doxepin, Cymbalta, Neurontin. She is now on Dilaudid and Zofran for pain. She has been n.p.o. ALLERGIES: Sulfa antibiotics. REVIEW OF SYSTEMS: CONSTITUTIONAL: Malaise. She has been somewhat weak. No appetite. HEENT: No current headache. No visual disturbances. No throat pain. No rhinorrhea. No ear pain. PULMONARY: No cough or shortness of breath. CARDIOVASCULAR: No chest pain, palpitations, or syncope. NEUROLOG IC: She does have chronic headaches, but again, not active. She does have a neuralgia in her right face that was treated last year. NEUROLOGIC: No paresthesias, seizures. No falls. DERMATOLOGIC: No rash or jaundice. ENDOCRINE: No heat or cold intolerance. No polyuria, polydipsia. GENITOURINAR Y: No hematuria or dysuria. GYNECOLOGIC: No vaginal bleeding or discharge. RHEUMATOLOGIC: No act swapnil joint pain or swelling. LYMPHATIC: Denies any lymph node swelling. GASTROINTESTINAL: Per the History of Present Illness and otherwise negative. Of note, she does have a history of diarrhea-pred ominant irritable bowel syndrome. PHYSICAL EXAM: VITAL SIGNS: Blood pressure is 91/61, with a pulse of 65 and regular. Respirations are 16. Oxygenation is 98% on 1 L nasal cannula. Temperature is 36.8 T-max. GENERAL: Pale, somewh at anxious-appearing female in no acute distress. HEENT: Normocephalic, atraumatic. NECK: Supple. Oropharynx is clear. Mucous membranes are moist. No buccal or oropharyngeal lesions. Sclerae ani cteric. PULMONARY: Clear to auscultation bilaterally. CARDIOVASCULAR: Regular rate and rhythm, wi thout murmur, rub, or gallop. GI: The abdomen is nondistended. Bowel sounds are normal. There is no rebound or guarding. There is some mild diffuse tenderness. No palpable mass. No abdominal brui t. No ascites. MUSCULOSKELETAL: No joint deformity or swelling. No clubbing. No cyanosis. No pa lmar erythema. DERMATOLOGIC: Pale skin, warm and dry. No rash or jaundice. NEUROLOGIC: Alert to person, place, and time. Speech is normal. Affect is slightly anxious. Mood is somewhat depressed. Motor is nonfocal. Strength is symmetric in the upper and lower extremities. Sensation is intact to light touch diffusely. She moves all extremities normally. No tremor or ataxia. No asterixis. LABORATORY DATA: Database includes the following: Labs this morning, white blood count 10.7, improv ed from 13.2. Hematocrit is 36.1, decreased from 47.1. Platelets are 210. Chemistries show a sodiu m of 143, potassium 4.0, chloride 107, bicarbonate 28, BUN 8, creatinine 0.7, glucose 78. Total bili ulloa is 0.6. AST 23. ALT is 26. Alkaline phosphatase 61. Lipase is 125. Urinalysis is negative f or infection. IMAGING: Includes a CT scan of the abdomen and pelvis performed on November 30, 2017, with oral and IV c ontrast. This shows an absent gallbladder with mild intra and extrahepatic biliary ductal dilatation without a transition point. The pancreas is normal. There are some small, circumscribed densities in the right kidney that are too small to characterize but look most radiographically consistent with cysts. There is mild thickening in the descending colon, although the colon is decompressed and sub optimally imaged. There is no intraabdominal air. The small bowel is of normal caliber, without obs truction. The vascular structures of the mesentery are patent, including the SMV, hepatic vein, IVC, portal vein, and splenic veins, which are visualized. There is no fluid in the pelvis, but the uter us is absent. IMPRESSION: 1. Diffuse abdominal pain. 2. Hematochezia. 3. Diarrhea. 4. Mild thickening to the descending colon. RECOMMENDATIONS: 1. The most likely clinical diagnosis would be for recurrent ischemic colitis. She does have risk f actors for this, including migraine headaches, previous abdominal surgery, thin body habitus, relativ libertad low blood pressure, history of irritable bowel syndrome diarrhea, and endometriosis, all of which increase her risk for this. She also has, interestingly, a family history of a lot of autoimmunity. 2. Will proceed with diagnostic colonoscopy to confirm her disease. The intent will be to get to th e area of abnormality and take some small tissue biopsies. Whether or not a full colonoscopy can be completed is unknown. 3. IV fluid hydration. 4. Bowel cleanse for colonoscopy. 5. N.p.o. 6. Anesthesia consultation for her procedure as she likely would be benefitted by monitored anesthes ia care for her procedure. 7. Further recommendations to follow her colonoscopy evaluation today. 8. Will send SPEP, HAYLEY, c-ANCA, p-ANCA, and rheumatoid factor as some screening for possible autoimm unity or vasculitis, which can be related to these syndromes. It is reassuring that at least on her CT the major vascular structures are normal. This would help rule out aneurysm or thromboembolic ill ness, in my opinion. 9. Further recommendations to follow. /[id number]/MODL
[2017-12-01] MEDS ORDERED: PROPOFOL 200 MG/20 ML VIAL ONE (11:02)
[2017-12-01] MEDS ORDERED: fentaNYL 100 MCG/2 ML INJ IVP PRN (11:08)
[2017-12-01] MEDS ORDERED: ONDANSETRON 4 MG/2 ML VIAL IVP PRN (11:08)
[2017-12-01] MEDS ORDERED: LR 500 ML IV PRN (11:08)
[2017-12-01] MEDS ORDERED: NALOXONE HCL 0.4 MG/ML INJ IVP PRN (11:08)
--- NOTE | 2017-12-01 11:08 | PDANEPAE ---
ANE Past Medical History - Cardiovascular History Hx Hypertension: No Hx Arrhythmias: No Hx Chest Pain: No Hx Coronary Artery / Peripheral Vascular Disease: No Hx CHF / Valvular Disease: No Hx Palpitations: No Cardiovascular History Comment: THICKENING OF MITRAL VALVE- PCP MANAGES-dx 20+ yrs ago - Pulmonary History Hx COPD: No Hx Asthma/Reactive Airway Disease: No Hx Recent Upper Respiratory Infection: No Hx Oxygen in Use at Home: No Hx Sleep Apnea: No Sleep Apnea Screening Result - Last Documented: Negative - Neurologic History Hx Cerebrovascular Accident: No Hx Seizures: No Hx Dementia: No Neurologic History Comment: MIGRAINES - Endocrine History Hx Diabetes: No Endocrine History Comment: HYPOTHYROIDISM -no Rx - Renal History Hx Renal Disorders: No - Liver History Hx Hepatic Disorders: No - Neurological & Psychiatric Hx Hx Neurological and Psychiatric Disorders: Yes Neurological / Psychiatric History Comment: DEPRESSION. ANXIETY. C5/C6 bulging disc,osteophyte - Cancer History Hx Cancer: No - Congenital Disorder History Hx Congenital Disorders: No - GI History Hx Gastrointestinal Disorders: Yes Gastrointestinal History Comment: REFLUX ON PRILOSEC. IBS. HX OF GASTRIC ULCER , ischemic colitis. - Other Health History Other Health History: Trigeminal neuralgia - Chronic Pain History Chronic Pain: Yes (R face/toward R ear) - Surgical History Prior Surgeries: R ft bunionectomy 2014. LT FOOT BUNION 05/2014. LAP MARNIE. LAPROSCOPY. 3 C-SECTIONS. HYSTERECTOMY. LEFT BREAST LUMPECTOMY ANE Review of Systems Review of Systems: ANE Patient History - Allergies Allergies/Adverse Reactions: Sulfa (Sulfonamide Antibiotics) Allergy (Verified 12/06/16 17:18) Hives - Home Medications Home medications: home medication list seen and reviewed Home Medications: Baclofen [Baclofen 10 mg (*)] 30 mg PO HS 11/22/16 [Last Taken 11/27/17] Butalb/Acetaminophen/Caffeine [Feezao-Woqkjvzz-Alzh 50-300-40] 2 cap PO Q6H PRN 11/22/16 [Last Taken Unknown] DULoxetine [Cymbalta 60 MG (*)] 120 mg PO DAILY 11/22/16 [Last Taken 11/29/17] Eszopiclone [Lunesta] 3 mg PO HS 11/22/16 [Last Taken 11/29/17] Gabapentin 900 mg PO BID 11/22/16 [Last Taken 11/29/17] Prochlorperazine Maleate [Compazine 10mg (*)] 10 mg PO Q6H PRN 11/22/16 [Last Taken 12/10/16] Spironolactone [Aldactone] 50 mg PO BID 11/22/16 [Last Taken 11/29/17] buPROPion SR [Wellbutrin 150mg SR (*)] 150 mg PO DAILY 11/22/16 [Last Taken ] Diazepam [Valium 5 MG (*)] 5 - 10 mg PO DAILY PRN 11/30/17 [Last Taken Unknown] Doxepin HCl [SINEquan 10 MG (*)] 10 mg PO HS 11/30/17 [Last Taken 11/29/17] - NPO status NPO Status: no food or drink >8 hours NPO Since - Liquids (Date): 12/01/17 NPO Since - Liquids (Time): 01:00 NPO Since - Solids (Date): 11/29/17 NPO Since - Solids (Time): 15:00 - Anes Hx Anes Hx: no prior problems - Smoking Hx Smoking Status: Never smoked - Family Anes Hx Family Hx Anesthesia Complications: NONE ANE Labs/Vital Signs - Labs Result Diagrams: 12/01/17 04:45 12/01/17 04:45 - Vital Signs Blood Pressure: 106/73 Heart Rate: 106 Respiratory Rate: 21 O2 Sat (%): 99 Height: 157.48 cm Weight: 49.8 kg ANE Physical Exam - Airway Neck exam: FROM Mallampati Score: Class 2 Mouth exam: normal dental/mouth exam - Pulmonary Pulmonary: no respiratory distress, no rales or rhonchi, clear to auscultation - Cardiovascular Cardiovascular: no murmur, rub, or gallop, tachycardia - ASA Status ASA Status: II ANE Anesthesia Plan Anesthesia Plan: GA with mask
--- NOTE | 2017-12-01 11:16 | GIREPORT ---
Formerly [facility] Surgical Services - Endoscopy Department Patient Name: Alondra Santo Procedure Date: 12/01/2017 10:52 AM Patient Type: Inpatient Attending MD/ ER Physician: Gabriel Johnson MD Procedure: Flexible Sigmoidoscopy Indications: Abdominal pain in the left lower quadrant, Hematochezia Providers: Gabriel Johnson MD Medicines: Propofol per Anesthesia Complications: No immediate complications. Description of Procedure: After obtaining informed consent, the endoscope was passed under direct vision. Throughout the procedure, the patient's blood pressure, pulse, and oxygen saturations were monitored continuously. The Colonoscope was introduced through the anus and advanced to the left transverse colon. After obtaining informed consent, the endoscope was passed under direct visio n. Throughout the procedure, the patient's blood pressure, pulse, and oxyg en saturations were monitored continuously.The flexible sigmoidoscopy was accomplished without difficulty. The patient tolerated the procedure we ll. The quality of the bowel preparation was good. Findings: The perianal and digital rectal examinations were normal. Pertinent negatives include normal sphincter tone and no palpable rectal lesions. A scattered, segmental and patchy area of moderately congested, erythem atous and ulcerated mucosa was found in the descending colon and at the splen ic flexure. Biopsies were taken with a cold forceps for histology. Estimated Blood Loss: Estimated blood loss: none. Post Op Diagnosis: - Congested, erythematous and ulcerated mucosa in the descending colon and at the splenic flexure. Biopsied. - The exam is consistent with ischemic colitis. Recommendation: - Await pathology results. - Advance diet as tolerated today. - Repeat flexible sigmoidoscopy in 4 months to check healing. - [facility]. - Please call with questions. - Thank you for allowing me to be involved in the care of your patient. Attending Participation: I personally performed the entire procedure without the assistance of a fellow, resident or surg ical public health training assistant. Gabriel Johnson MD Gabriel Johnson MD 12/01/2017 11:16:11 AM This report has been signed electronicallyDavid MD Alex Number of Addenda: 0 Note Initiated On: 12/01/2017 10:52 AM Total Procedure Duration Time 0 hours 5 minutes 17 seconds [email or web address]
--- NOTE | 2017-12-01 11:34 | POSTANESTH ---
Post Anesthetic Evaluation Cardiovascular Status: Similar to Pre-Op Cond Respiratory Status: Normal, Stable, Similar to Pre-op Cond. Level of Consciousness/Mental Status: Can Participate in Eval, Mildly Sleepy, Arousable Pain Control: Adequate, Prn Tx Ordered Nausea/Vomiting Control: Adequate, Prn Tx Ordered Complications Possibly Related to Anesthesia: None Noted
[2017-12-01] MEDS: GABAPENTIN 300 MG CAP PO SCH (13:01)
[2017-12-01] MEDS: DULoxetine 60 MG CAP PO SCH (13:02)
[2017-12-01] MEDS: buPROPion SR 150 MG TAB PO SCH (13:02)
[2017-12-01 16:17] VITALS: BP 99/68
--- NOTE | 2017-12-01 16:42 | ASMTCMCOM ---
CM Note CM Note Notes: 47yr old female admitted for Abdominal pain, red blood rectum. She has a Hx of Anxiety, Depression, Migraines, Acne, Anorexia, GERD, IBS, Insomnia, Colitis. Patient had a colonoscopy today to determine whether she might have ischemic colitis. Patient lives with her . Date Signed: 12/01/2017 04:42 PM Electronically Signed By:Kaur Jackson LCSW
--- NOTE | 2017-12-01 16:44 | GDS ---
[f rep st] DISCHARGE SUMMARY DISCHARGE DIAGNOSES: 1. Moderate ischemic colitis with associated abdominal pain. 2. Red blood per rectum. 3. History of anxiety and depression. 4. Migraine headache. 5. Acne. CONSULTATION: Dr. Johnson. HISTORY OF PRESENT ILLNESS: The patient is a 47-year-old female who presented to the emergency room with abdominal pain and bright red blood per rectum. She was seen and evaluated by Dr. Johnson. She had a colonoscopy performed today due to her abdominal pain. It was noted that she had congested erythematous and ulcerated mucosa in the ascending colon and at the splenic flexure. This was biopsied. It is noted that her exam is consistent with ischemic colitis. She will need followup colonoscopy in 3-4 months. HOSPITAL COURSE: 1. Moderate ischemic colitis. The patient is eating and drinking fluids well. Will advance her diet and see how she does. She will follow up with Dr. Johnson. She has multiple labs pending. 2. Red blood per rectum. None further. 3. History of anxiety and depression, stable. 4. Migraine headache. No complaints. 5. Acne, on spironolactone. DISCHARGE CONDITION: Stable. Blood pressure is 96/67, heart rate 97, respiratory rate of 15, O2 saturation on room air 98%, temperature 36.7 Celsius. DISCHARGE MEDICATIONS: Please see the EMR. DISCHARGE INSTRUCTIONS: 1. To hold the spironolactone if she is not taking in adequate fluids. 2. Diet as tolerated. 3. Follow up with Dr. Johnson in regard to her biopsies and pending labs. If she does not hear from him, to call him in 2 weeks. 4. To get a repeat hemoglobin and hematocrit early next week with Dr. Hansen. 5. To get a repeat colonoscopy in approximately 3 months. /[id number]/MODL MTDD
--- NOTE | 2017-12-01 16:46 | ASDISCHSUM ---
Discharge Information Plan Status:Home with No Needs Medically Cleared to Leave:12/01/2017 Discharge Date:12/01/2017 CM D/C Disposition:Home, Routine, Self-Care ADT D/C Disposition:Home, Routine, Self-Care Projected Discharge Date:12/01/2017 05:00 PM Transportation at D/C:Family Discharge Delay Reason: Follow-Up Date:12/01/2017 05:00 PM Discharge Slot: Final Diagnosis:Abdominal pain, red blood rectum Placement Information Patient Contact Information Contact Name:SMITHAWILTONJEAN Relationship: Address:[address] Work Phone: City:[place] Alternate Phone: [facility]/Zip Code:[place] [address] Email: Financial Information Financial Class:[employer] Primary Plan Desc:ALEXANDRA CESAR Primary Plan Number:[id number] Secondary Plan Desc: Secondary Plan Number: Assessment Information LACE LACE Length of stay for Answers: 1 day current admission Comorbidities - select Answers: Other Notes: Hx of ischemic colitis all that apply # of Emergency department Answers: 1-2 visits in the last 6 months Social determinants Answers: Mental health diagnosis (anxiety, depression, pers onality disorders, etc.) Score: 6 Date Signed: 12/01/2017 04:45 PM Electronically Signed By:Kaur Jackson LCSW [facility] CM Progress Note CM Note CM Note Notes: 47yr old female admitted for Abdominal pain, red blood rectum. She has a Hx of Anxiety, Depression, Migraines, Acne, Anorexia, GERD, IBS, Insomnia, Colitis. Patient had a colonoscopy today to determine whether she might have ischemic colitis. Patient lives with her . Date Signed: 12/01/2017 04:42 PM Electronically Signed By:Kaur Jackson LCSW Case Management Discharge Plan Note Case Management Discharge Discharge Order Complete? Answers: Yes Patient to Obtain Answers: via Family Medications Transportation Arranged Answers: Family/Friends Transport will Pick (Date 12/01/2017 05:00 PM & Time) Family Notified Answers: Yes Notes: Family to transport Discharge Comments Notes: Patient has been discharged home. No needs at this time. Date Signed: 12/01/2017 04:44 PM Electronically Signed By:Kaur Jackson LCSW Intervention Information
== END 2017-12-01 17:25 | disposition home or self-care (01) ==
LOC: F3E 12:17
PROVIDERS: ADMIT Internal Medicine; ATTEND Internal Medicine
PROC: 0DBM8ZX Excision of Descending Colon, Via Natural or Artificial Opening Endoscopic, Diagnostic (ICD-10-PCS; principal; 2017-11-30)
DX: K55.9 Vascular disorder of intestine, unspecified (principal); K62.5 Hemorrhage of anus and rectum; F41.8 Other specified anxiety disorders; L70.9 Acne, unspecified; E03.9 Hypothyroidism, unspecified; K21.9 Gastro-esophageal reflux disease without esophagitis; G50.0 Trigeminal neuralgia; Z90.49 Acquired absence of other specified parts of digestive tract; Z90.710 Acquired absence of both cervix and uterus; Z88.2 Allergy status to sulfonamides
CPT/HCPCS: 83516-90; 83520-90; 96374; G0378; G0472; J1170; J2405; J2704; Q9967

== ENCOUNTER 2018-03-06 08:18 | Day surgery (SDC) | payer OTHER ==
--- NOTE | 2018-03-06 09:24 | PDGENHP ---
History & Physical Chief Complaint: Chest pain. Diarrhea History of Present Illness: History of ischemic colitis and now chronic diarrhea. Also with episodic globus sensation and chest pain. Pertinent Past, Social, Family History: Hypothyroid. Ischemic colitis. Cervical facet disease. SH: No tobacco or ETOH. FH: Negative for ischemic colitis or colon cancer Relevant Physical Exam: NAD. CTA B/L. RRR without m/r/g. GI Soft. NABS. NT/ND Cardiorespiratory Assessment: ASA II. EGD/Colonoscopy with MAC
[2018-03-06] MEDS ORDERED: MIDAZOLAM 2 MG/2 ML VIAL IVP ONE (09:29)
[2018-03-06] MEDS ORDERED: MIDAZOLAM 2 MG/2 ML VIAL ONE (09:30)
[2018-03-06] MEDS ORDERED: PROMETHAZINE HCL 25 MG/ML INJ ONE (09:32)
[2018-03-06] MEDS ORDERED: ONDANSETRON 4 MG/2 ML VIAL ONE (09:35)
[2018-03-06] MEDS ORDERED: fentaNYL 100 MCG/2 ML INJ ONE (09:35)
--- NOTE | 2018-03-06 09:54 | GIREPORT ---
[facility] Surgical Services - Endoscopy Department Patient Name: Alondra Salomon Procedure Date: 03/06/2018 9:20 AM Patient Type: Outpatient Attending MD/ ER Physician: Gabriel Johnson MD Procedure: Upper GI endoscopy Indications: Heartburn, Globus sensation Providers: Gabriel Johnson MD Medicines: Propofol per Anesthesia Complications: No immediate complications. Description of Procedure: After obtaining informed consent, the endoscope was passed under direct vision. Throughout the procedure, the patient's blood pressure, pulse, and oxygen saturations were monitored continuously. The was introduced thro ugh the mouth, and advanced to the second part of duodenum. The upper GI endoscopy was accomplished without difficulty. The patient tolerated th e procedure well. Findings: The esophagus was normal. A few small semi-sessile polyps with no bleeding and no stigmata of rec ent bleeding were found in the gastric body. Biopsies were taken with a col d forceps for histology. Diffuse moderate inflammation characterized by erythema and granularity was found in the entire examined stomach. Biopsies were taken with a cold forceps for histology. The duodenal bulb, first portion of the duodenum and second portion of the duodenum were normal. Biopsies for histology were taken with a cold for ceps for evaluation of celiac disease. Estimated Blood Loss: Estimated blood loss: none. Post Op Diagnosis: - Normal esophagus. - A few gastric polyps. Biopsied. - Chronic gastritis. Biopsied. - Normal duodenal bulb, first portion of the duodenum and second portio n of the duodenum. Biopsied. Recommendation: - Await pathology results. - Use Protonix (pantoprazole) 40 mg PO daily. - Perform a colonoscopy today. - Return to GI office as previously scheduled. - Thank you for allowing me to be involved in the care of your patient. Attending Participation: I personally performed the entire procedure without the assistance of a fellow, resident or surg ical assistant reading teacher. Gabriel Johnson MD Gabriel Johnson MD 03/06/2018 9:53:49 AM This report has been signed electronicallyDavid MD Alex Number of Addenda: 0 Note Initiated On: 03/06/2018 9:20 AM [email or web address]}
[2018-03-06] MEDS ORDERED: NALOXONE HCL 0.4 MG/ML INJ IVP PRN (09:59)
[2018-03-06] MEDS ORDERED: PHENYLEPHRINE HCL 100 MCG/ML SYR IVP PRN (09:59)
[2018-03-06] MEDS ORDERED: LR 500 ML IV PRN (09:59)
[2018-03-06] MEDS ORDERED: ONDANSETRON 4 MG/2 ML VIAL IVP PRN (09:59)
[2018-03-06] MEDS ORDERED: PROMETHAZINE HCL 25 MG/ML INJ IVP PRN (09:59)
[2018-03-06] MEDS ORDERED: LR 1,000 ML IV ONE (10:00)
--- NOTE | 2018-03-06 10:02 | PDANEPAE ---
ANE Past Medical History - Cardiovascular History Hx Hypertension: No Hx Arrhythmias: No Hx Chest Pain: No Hx Coronary Artery / Peripheral Vascular Disease: No Hx CHF / Valvular Disease: No Hx Palpitations: No Cardiovascular History Comment: THICKENING OF MITRAL VALVE- PCP MANAGES-dx 20+ yrs ago - Pulmonary History Hx COPD: No Hx Asthma/Reactive Airway Disease: No Hx Recent Upper Respiratory Infection: No Hx Oxygen in Use at Home: No Hx Sleep Apnea: No Sleep Apnea Screening Result - Last Documented: Negative - Neurologic History Hx Cerebrovascular Accident: No Hx Seizures: No Hx Dementia: No Neurologic History Comment: MIGRAINES. trigeminal neuralgia. C5/C6 bulging disc, osteophyte - gets steroid injections - Endocrine History Hx Diabetes: No Hypothyroid: Yes Hyperthyroid: No Obesity: no Endocrine History Comment: HYPOTHYROIDISM - no Rx needed - Renal History Hx Renal Disorders: No - Liver History Hx Hepatic Disorders: No - Neurological & Psychiatric Hx Hx Neurological and Psychiatric Disorders: Yes Neurological / Psychiatric History Comment: DEPRESSION. ANXIETY - Cancer History Hx Cancer: No - Congenital Disorder History Hx Congenital Disorders: No - GI History GERD: moderate, severe Hx Gastrointestinal Disorders: Yes Gastrointestinal History Comment: GERD. IBS. HX OF GASTRIC ULCER. ischemic colitis - Other Health History Other Health History: adult acne. glasses - Chronic Pain History Chronic Pain: Yes (R face/toward r ear) - Surgical History Prior Surgeries: Colonoscopy 2017. Microvascular decompression for trigeminal neuralgia, 12/2016. R ft bunionectomy 2014. LT FOOT BUNION 05/2014. LAP MARNIE. LAPROSCOPY for endometriosis. 3 C-SECTIONS. HYSTERECTOMY. LEFT BREAST LUMPECTOMY ANE Review of Systems Review of Systems: - Exercise capacity Exercise capacity: >=4 METS METS (RN): 5 METS ANE Patient History - Allergies Allergies/Adverse Reactions: Sulfa (Sulfonamide Antibiotics) Allergy (Verified 02/06/18 11:29) Hives and breathing problems - Home Medications Home Medications: Baclofen [Baclofen 10 mg (*)] 11/22/16 [Last Taken 11/27/17] Butalb/Acetaminophen/Caffeine [Qhrigb-Crkhaufd-Asnd 50-300-40] 11/22/16 [Last Taken Unknown] DULoxetine [Cymbalta 60 MG (*)] 11/22/16 [Last Taken 11/29/17] Eszopiclone [Lunesta] 11/22/16 [Last Taken 03/05/18] Gabapentin 11/22/16 [Last Taken 03/05/18] Prochlorperazine Maleate [Compazine 10mg (*)] 11/22/16 [Last Taken 03/05/18] Spironolactone [Aldactone] 11/22/16 [Last Taken 03/05/18] buPROPion SR [Wellbutrin 150mg SR (*)] 11/22/16 [Last Taken 03/05/18] Diazepam [Valium 5 MG (*)] 11/30/17 [Last Taken Unknown] Doxepin HCl [SINEquan 10 MG (*)] 11/30/17 [Last Taken 03/05/18] Bentyl 10 MG (*) 02/06/18 [Last Taken Unknown] Ranitidine HCl 02/06/18 [Last Taken 03/05/18] - NPO status NPO Since - Liquids (Date): 03/05/18 NPO Since - Liquids (Time): 21:00 NPO Since - Solids (Date): 03/04/18 NPO Since - Solids (Time): 19:00 - Smoking Hx Smoking Status: Never smoked - Family Anes Hx Family Hx Anesthesia Complications: none ANE Labs/Vital Signs - Vital Signs Blood Pressure: 117/85 Heart Rate: 95 Respiratory Rate: 14 O2 Sat (%): 99 Height: 157.48 cm Weight: 52.163 kg ANE Physical Exam - Airway Neck exam: FROM Mallampati Score: Class 2 Mouth exam: normal dental/mouth exam - Pulmonary Pulmonary: no respiratory distress, no rales or rhonchi, clear to auscultation - Cardiovascular Cardiovascular: regular rate and rhythym, no murmur, rub, or gallop - ASA Status ASA Status: II ANE Anesthesia Plan Anesthesia Plan: MAC Total IV Anesthesia: Yes
[2018-03-06] MEDS ORDERED: LIDOCAINE 2% 2 ML INJ ONE ×2 (10:06)
[2018-03-06] MEDS ORDERED: PHENYLEPHRINE 10 MG/ML SDV ONE (10:06)
--- NOTE | 2018-03-06 10:22 | GIREPORT ---
[facility] - Endoscopy Department Patient Name: Alondra Salomon Procedure Date: 03/06/2018 9:20 AM Patient Type: Outpatient Attending MD/ ER Physician: Gabriel Johnson MD Procedure: Colonoscopy Indications: Abdominal pain in the left upper quadrant, Chronic diarrhea, Hematochez ia Providers: Gabriel Johnson MD Medicines: Propofol per Anesthesia Complications: No immediate complications. Description of Procedure: After obtaining informed consent, the scope was passed under direct vis ion. Throughout the procedure, the patient's blood pressure, pulse, and oxyg en saturations were monitored continuously. The Colonoscope was introduced through the anus and advanced to the cecum, identified by appendiceal orifice and ileocecal valve. The colonoscopy was performed without difficulty. The patient tolerated the procedure well. The quality of th e bowel preparation was excellent. The ileocecal valve, appendiceal orifi ce, and rectum were photographed. Findings: The perianal and digital rectal examinations were normal. Pertinent negatives include normal sphincter tone and no palpable rectal lesions. The area from rectum to cecum appeared normal. Biopsies for histology w ere taken with a cold forceps from the right colon and left colon for evalu ation of microscopic colitis. Estimated Blood Loss: Estimated blood loss: none. Post Op Diagnosis: - The rectum to cecum is normal. Biopsied. - Her previously documented ischemic colitis has resolved. Recommendation: - Await pathology results. - Repeat colonoscopy in 10 years for screening purposes. - Return to GI office as previously scheduled. - Resume previous diet. - Continue present medications. - Patient has a contact number available for emergencies. The signs and symptoms of potential delayed complications were discussed with the pat ient. Return to normal activities tomorrow. Written discharge instructions we re provided to the patient. - Thank you for allowing me to be involved in the care of your patient. Attending Participation: I personally performed the entire procedure without the assistance of a fellow, resident or surg ical graduate research assistant. Gabriel Johnson MD Gabriel Johnson MD 03/06/2018 10:22:22 AM This report has been signed electronicallyDavid MD Alex Number of Addenda: 0 Note Initiated On: 03/06/2018 9:20 AM Total Procedure Duration Time 0 hours 13 minutes 25 seconds [email or web address]
--- NOTE | 2018-03-06 10:33 | POSTANESTH ---
Post Anesthetic Evaluation Cardiovascular Status: Normal, Stable Respiratory Status: Normal, Stable Level of Consciousness/Mental Status: Can Participate in Eval Pain Control: Adequate, Prn Tx Ordered Nausea/Vomiting Control: Adequate, Prn Tx Ordered Complications Possibly Related to Anesthesia: None Noted
[2018-03-06 11:17] VITALS: BP 101/74
== END 2018-03-06 12:05 | disposition home or self-care (01) ==
LOC: FSGY 08:18
PROVIDERS: ATTEND Internal Medicine Gastroenterology
PROC: 0DB68ZX Excision of Stomach, Via Natural or Artificial Opening Endoscopic, Diagnostic (ICD-10-PCS; principal; 2018-03-06 10:00)
PROC: 0DBE8ZX Excision of Large Intestine, Via Natural or Artificial Opening Endoscopic, Diagnostic (ICD-10-PCS; principal; 2018-03-06 10:00)
PROC: 0DB98ZX Excision of Duodenum, Via Natural or Artificial Opening Endoscopic, Diagnostic (ICD-10-PCS; principal; 2018-03-06 10:00)
DX: K31.7 Polyp of stomach and duodenum (principal); R07.9 Chest pain, unspecified; R19.7 Diarrhea, unspecified; E03.9 Hypothyroidism, unspecified; K55.1 Chronic vascular disorders of intestine; F41.8 Other specified anxiety disorders
CPT/HCPCS: J2250; J2370; J2405; J2550; J3010

== ENCOUNTER → 2018-05-07 | Outpatient (CLI) | payer OTHER ==
--- NOTE | 2018-03-06 09:20 | PDANEPAE ---
ANE Past Medical History - Cardiovascular History Hx Hypertension: No Hx Arrhythmias: No Hx Chest Pain: No Hx Coronary Artery / Peripheral Vascular Disease: No Hx CHF / Valvular Disease: No Hx Palpitations: No Cardiovascular History Comment: THICKENING OF MITRAL VALVE- PCP MANAGES-dx 20+ yrs ago - Pulmonary History Hx COPD: No Hx Asthma/Reactive Airway Disease: No Hx Recent Upper Respiratory Infection: No Hx Oxygen in Use at Home: No Hx Sleep Apnea: No - Neurologic History Hx Cerebrovascular Accident: No Hx Seizures: No Hx Dementia: No Neurologic History Comment: MIGRAINES. trigeminal neuralgia. C5/C6 bulging disc, osteophyte - gets steroid injections - Endocrine History Hx Diabetes: No Hypothyroid: Yes Hyperthyroid: No Obesity: no Endocrine History Comment: HYPOTHYROIDISM - no Rx needed - Renal History Hx Renal Disorders: No - Liver History Hx Hepatic Disorders: No - Neurological & Psychiatric Hx Hx Neurological and Psychiatric Disorders: Yes Neurological / Psychiatric History Comment: DEPRESSION. ANXIETY - Cancer History Hx Cancer: No - Congenital Disorder History Hx Congenital Disorders: No - GI History GERD: moderate Hx Gastrointestinal Disorders: Yes Gastrointestinal History Comment: GERD. IBS. HX OF GASTRIC ULCER. ischemic colitis - Other Health History Other Health History: adult acne. glasses - Chronic Pain History Chronic Pain: Yes (R face/toward r ear) - Surgical History Prior Surgeries: Colonoscopy 2017. Microvascular decompression for trigeminal neuralgia, 12/2016. R ft bunionectomy 2014. LT FOOT BUNION 05/2014. LAP MARNIE. LAPROSCOPY for endometriosis. 3 C-SECTIONS. HYSTERECTOMY. LEFT BREAST LUMPECTOMY ANE Review of Systems Review of Systems: - Exercise capacity Exercise capacity: >=4 METS METS (RN): 5 METS ANE Patient History - Allergies Allergies/Adverse Reactions: Sulfa (Sulfonamide Antibiotics) Allergy (Verified 02/06/18 11:29) Hives and breathing problems - Home Medications Home Medications: Baclofen [Baclofen 10 mg (*)] 11/22/16 [Last Taken 11/27/17] Butalb/Acetaminophen/Caffeine [Ceslmi-Gnysmasc-Iiru 50-300-40] 11/22/16 [Last Taken Unknown] DULoxetine [Cymbalta 60 MG (*)] 11/22/16 [Last Taken 11/29/17] Eszopiclone [Lunesta] 11/22/16 [Last Taken 11/29/17] Gabapentin 11/22/16 [Last Taken 11/29/17] Prochlorperazine Maleate [Compazine 10mg (*)] 11/22/16 [Last Taken 12/10/16] Spironolactone [Aldactone] 11/22/16 [Last Taken 11/29/17] buPROPion SR [Wellbutrin 150mg SR (*)] 11/22/16 [Last Taken 11/29/17] Diazepam [Valium 5 MG (*)] 11/30/17 [Last Taken Unknown] Doxepin HCl [SINEquan 10 MG (*)] 11/30/17 [Last Taken 11/29/17] Bentyl 10 MG (*) 02/06/18 [Last Taken Unknown] Ranitidine HCl 02/06/18 [Last Taken Unknown] - Anes Hx Anes Hx: post operative nausea and vomiting - Smoking Hx Smoking Status: Never smoked - Alcohol Use Alcohol Use: Rarely - Family Anes Hx Family Anes Hx: neg - N/A Family Hx Anesthesia Complications: none ANE Physical Exam - Airway Neck exam: FROM Mallampati Score: Class 1 Mouth exam: normal dental/mouth exam - Pulmonary Pulmonary: no respiratory distress, no rales or rhonchi, clear to auscultation - Cardiovascular Cardiovascular: regular rate and rhythym, no murmur, rub, or gallop - ASA Status ASA Status: II ANE Anesthesia Plan Anesthesia Plan: MAC Total IV Anesthesia: Yes
[~2018-05-07] MED LIST changes: +GADOBUTROL 10 ML VIAL IVP ONE; -ceFAZolin 2 GM/DEXTROSE 100 ML IV ONE; -morphINE SR 15 MG TAB PO ONE
== END ==
LOC: FIMAGING 07:09
PROVIDERS: ATTEND Internal Medicine Gastroenterology
DX: K55.9 Vascular disorder of intestine, unspecified (principal); K58.9 Irritable bowel syndrome, unspecified; K21.9 Gastro-esophageal reflux disease without esophagitis; G43.909 Migraine, unspecified, not intractable, without status migrainosus; G50.0 Trigeminal neuralgia; E03.9 Hypothyroidism, unspecified
CPT/HCPCS: A9585; C8902; C8918

== ENCOUNTER 2018-09-20 08:13 | Emergency (ER) | payer OTHER ==
--- NOTE | 2018-09-20 08:17 | EDPHY ---
H & P Time Seen by Provider: 09/20/18 08:15 HPI/ROS: CHIEF COMPLAINT: Chest pain HISTORY OF PRESENT ILLNESS: Patient had a sore throat yesterday and then the evening developed some lower back pain for which she took Percocet otherwise felt like her normal self. Today around 6:00 a.m. She started having pain on the left side of her chest just left of the sternum which radiates to her left arm and her neck. Some pleuritic and not positional and not associated with worsening with exertion. No cough or fever or leg swelling, no recent trauma or immobilization. Denies weakness or numbness of extremities and denies skin rash. REVIEW OF SYSTEMS: Eye: no change in vision ENT: no sore throat Cardiac: Dizziness but no palpitations, see HPI Pulmonary: no cough or SOB Abdomen: no vomiting, diarrhea, abdominal pain Musculoskeletal: HPI Skin: no rash Neuro: no headache Constitutional: no fever : no urinary symptoms A comprehensive 10 point review of systems is otherwise negative aside from elements mentioned in the history of present illness. PAST MEDICAL HISTORY: History and physical from admission dated 11/30/2017 personally reviewed includes major depression and anxiety, anorexia nervosa, migraines, reflux disease, irritable bowel, ischemic colitis. Family history: Positive for coronary disease and venous thromboembolism in her mother Social history: Nonsmoker no alcohol General Appearance: Alert and conversant, cooperative. Appears uncomfortable, restless in the bed. Eyes: No scleral icterus. ENT, Mouth: Normal mucous membranes. Respiratory: Normal respiratory effort, breath sounds equal, lungs are clear to auscultation. Cardiovascular: Regular rate and rhythm. Gastrointestinal: Abdomen is soft and non tender. Neurological: Alert, face symmetric, normal motor and sensory in extremities. Skin: Warm and dry, no rashes. Musculoskeletal: No calf tenderness or peripheral edema. Tenderness to palpation just left of the sternum on the mid chest wall medial to the breast, reproducing symptoms. Psychiatric: Appears anxious. Emergency Department course/MDM: Fentanyl 50 and ibuprofen 600. Initial EKG does not show acute ischemic changes. Low pretest probability for ACS or pulmonary embolism, initial heart score would include 1 point for age, and 1 for risk factors only. 940: Results discussed with the patient. D-dimer and troponin negative, normal chest x-ray. She is more comfortable now. I discussed with her that although we do not have a definitive diagnosis it is likely that she has something that is not a medically emergent condition. She is comfortable being discharged with symptomatic care. Smoking Status: Never smoked Constitutional: Initial Vital Signs Temperature (C) 36.1 C 09/20/18 08:19 Heart Rate 113 H 09/20/18 08:19 Respiratory Rate 18 09/20/18 08:19 Blood Pressure 135/87 H 09/20/18 08:19 O2 Sat (%) 97 09/20/18 08:19 O2 Delivery Mode Nasal Cannula O2 (L/minute) 2 Allergies/Adverse Reactions: Sulfa (Sulfonamide Antibiotics) Allergy (Verified 02/06/18 11:29) Hives and breathing problems Home Medications: Medication Instructions Recorded Baclofen [Baclofen 10 mg (*)] 11/22/16 Butalb/Acetaminophen/Caffeine 11/22/16 [Srjgnu-Ooasjuaz-Xdwi 50-300-40] DULoxetine [Cymbalta 60 MG (*)] 11/22/16 Eszopiclone [Lunesta] 11/22/16 Gabapentin 11/22/16 Prochlorperazine Maleate 11/22/16 [Compazine 10mg (*)] Spironolactone [Aldactone] 11/22/16 buPROPion SR [Wellbutrin 150mg SR 11/22/16 (*)] Diazepam [Valium 5 MG (*)] 11/30/17 Doxepin HCl [SINEquan 10 MG (*)] 11/30/17 Bentyl 10 MG (*) 02/06/18 Ranitidine HCl 02/06/18 Medical Decision Making - Diagnostics EKG Interpretation: 12-lead EKG interpreted by me; official reading is in computer system. My interpretation is sinus rhythm rate 111, low precordial voltage. Imaging Results: Imaging Impressions Chest X-Ray 09/20/18 08:35 Impression: Clear lungs. No acute process. Imaging: I viewed and interpreted images myself Differential Diagnosis: Differential diagnosis considered for chest pain including but not limited to myocardial ischemia, aortic dissection, pericarditis, pulmonary embolus, chest wall pain, pleural inflammation and pulmonary infectious causes. - Data Points Laboratory Results: Laboratory Results 09/20/18 08:28 09/20/18 08:28 09/20/18 09/20/18 09/20/18 08:31 08:28 08:28 WBC RBC Hgb Hct MCV MCH MCHC RDW Plt Count MPV Neut % (Auto) Lymph % (Auto) [place] % (Auto) Eos % (Auto) Baso % (Auto) Nucleat RBC Rel Count Absolute Neuts (auto) Absolute Lymphs (auto) Absolute Monos (auto) Absolute Eos (auto) Absolute Basos (auto) Absolute Nucleated RBC Immature Gran % Immature Gran # D-Dimer Sodium 139 mEq/L mEq/L (135-145) Potassium 4.1 mEq/L mEq/L (3.5-5.2) Chloride 107 mEq/L mEq/L (97-110) Carbon Dioxide 24 mEq/l mEq/l (22-31) Anion Gap 8 mEq/L mEq/L (6-14) BUN 13 mg/dL mg/dL (7-23) Creatinine 0.8 mg/dL mg/dL (0.6-1.0) Estimated GFR > 60 Glucose 98 mg/dL mg/dL (70-100) Calcium 8.9 mg/dL mg/dL (8.5-10.4) POC Troponin I 0.00 ng/mL ng/mL (0.00-0.08) Beta HCG, Qual NEGATIVE 09/20/18 09/20/18 08:28 08:28 WBC 8.51 10^3/uL 10^3/uL (3.80-9.50) RBC 4.68 10^6/uL 10^6/uL (4.18-5.33) Hgb 13.8 g/dL g/dL (12.6-16.3) Hct 40.6 % % (38.0-47.0) MCV 86.8 fL fL (81.5-99.8) MCH 29.5 pg pg (27.9-34.1) MCHC 34.0 g/dL g/dL (32.4-36.7) RDW 12.3 % % (11.5-15.2) Plt Count 283 10^3/uL 10^3/uL (150-400) MPV 10.2 fL fL (8.7-11.7) Neut % (Auto) 56.0 % % (39.3-74.2) Lymph % (Auto) 31.5 % % (15.0-45.0) [place] % (Auto) 8.0 % % (4.5-13.0) Eos % (Auto) 3.5 % % (0.6-7.6) Baso % (Auto) 0.6 % % (0.3-1.7) Nucleat RBC Rel Count 0.0 % % (0.0-0.2) Absolute Neuts (auto) 4.77 10^3/uL 10^3/uL (1.70-6.50) Absolute Lymphs (auto) 2.68 10^3/uL 10^3/uL (1.00-3.00) Absolute Monos (auto) 0.68 10^3/uL 10^3/uL (0.30-0.80) Absolute Eos (auto) 0.30 10^3/uL 10^3/uL (0.03-0.40) Absolute Basos (auto) 0.05 10^3/uL 10^3/uL (0.02-0.10) Absolute Nucleated RBC 0.00 10^3/uL 10^3/uL (0-0.01) Immature Gran % 0.4 % % (0.0-1.1) Immature Gran # 0.03 10^3/uL 10^3/uL (0.00-0.10) D-Dimer 0.37 ug/mLFEU ug/mLFEU (0.00-0.50) Sodium Potassium Chloride Carbon Dioxide Anion Gap BUN Creatinine Estimated GFR Glucose Calcium POC Troponin I Beta HCG, Qual Medications Given: Discontinued Medications Fentanyl (Sublimaze) 50 mcg IVP EDNOW ONE Stop: 09/20/18 08:36 Last Admin: 09/20/18 08:49 Dose: 50 mcg Ibuprofen (Motrin) 600 mg PO EDNOW ONE Stop: 09/20/18 08:36 Last Admin: 09/20/18 08:52 Dose: 600 mg Point of Care Test Results: Chemistry 09/20/18 08:31 POC Troponin I 0.00 ng/mL ng/mL (0.00-0.08) Departure - Departure Disposition: Home, Routine, Self-Care Clinical Impression: Chest pain Qualifiers: Chest pain type: unspecified Qualified Code(s): R07.9 - Chest pain, unspecified Condition: Good Instructions: Chest Pain (ED) Referrals: Nury Hansen MD [Primary Care Provider] - As per Instructions
[2018-09-20] MEDS ORDERED: fentaNYL 100 MCG/2 ML INJ IVP ONE (08:35)
[2018-09-20] MEDS ORDERED: IBUPROFEN 600 MG TAB PO ONE (08:35)
[2018-09-20 08:42] LABS: PLATELET COUNT 283 10^3/uL (150-400)
[2018-09-20 09:39] VITALS: BP 95/70
--- NOTE | 2018-09-20 11:18 | CPEKG ---
Test Reason : OPEN Blood Pressure : / mmHG Vent. Rate : 111 BPM Atrial Rate : 112 BPM P-R Int : 142 ms QRS Dur : 077 ms QT Int : 383 ms P-R-T Axes : 085 073 054 degrees QTc Int : 521 ms Sinus tachycardia Low voltage, precordial leads Borderline T wave abnormalities Prolonged QT interval Confirmed by Jeremy Lozoya ([id number]) on 09/20/2018 11:17:29 AM Referred By: Jeremy Lozoya Confirmed By:Jeremy Lozoya
== END 2018-09-20 10:23 | disposition home or self-care (01) ==
DX: R07.9 Chest pain, unspecified (principal); Z79.899 Other long term (current) drug therapy
CPT/HCPCS: 84484-ER; 96374; J3010